=== PATIENT | female | born 1945 | race Caucasian/White ===

== ENCOUNTER → 2016-12-22 | Outpatient (CLI) | payer MEDICARE, BC | END | disposition disaster alternative care site (69) | LOC: GAMB 02:28 | DX: S79.912A Unspecified injury of left hip, initial encounter (principal); C95.90 Leukemia, unspecified not having achieved remission; M25.552 Pain in left hip; H40.9 Unspecified glaucoma; W01.198A Fall on same level from slipping, tripping and stumbling with subsequent striking against other object, initial encounter; Z88.2 Allergy status to sulfonamides | CPT/HCPCS: J3010 ==